=== PATIENT | female | born 1945 | race Caucasian/White ===

== ENCOUNTER 2018-03-08 05:12 | Emergency (ER) | payer OTHER ==
[~2018-03-08] VITALS: Ht 157.5 cm; Wt 71.7 kg
[2018-03-08] MEDS ORDERED: TOPROL XL25 M1 (05:25)
[2018-03-08] MEDS ORDERED: ELIQUIS2.5 MG (05:25)
[2018-03-08] MEDS ORDERED: REGLAN5 MG/5 ML (05:25)
[2018-03-08] MEDS ORDERED: MULTAQ400 MG (05:25)
[2018-03-08] MEDS ORDERED: MICARDIS20 MG (05:26)
[2018-03-08] MEDS ORDERED: ZANTAC150 M3 (05:26)
[2018-03-08] MEDS ORDERED: SYNTHROID75 MCG (05:26)
== END 2018-03-08 12:31 | disposition home or self-care (01) ==
LOC: ER 05:12
DX: K52.1 Toxic gastroenteritis and colitis (principal); E86.0 Dehydration; R11.2 Nausea with vomiting, unspecified; T45.1X5A Adverse effect of antineoplastic and immunosuppressive drugs, initial encounter; Y92.89 Other specified places as the place of occurrence of the external cause